=== PATIENT | female | born 1955 | race Caucasian/White ===

== ENCOUNTER 2025-04-08 07:36 | Outpatient (OUT) | payer MEDICARE, OTHER, SELFPAY ==
--- OUTSIDE RECORDS SUMMARY | 2020-01-05 05:30 | XMS_ITS | Continuity of Care Document ---
Author Organization [facility] Address [address] [place] [address] Phone Care Team Providers Care Product Marketer Name Role Phone TeofiloRobbi Mack Unavailable Unavailable Procedures Procedure Date Covid Testing [facility] Results Test Name Date and Time Measure Units Reference Range Abnormal Flag Status Comments Panel Description: SARS-CoV-2, ELVIS Final SARS-CoV-2, ELVIS 07:53:00 Not Detected Not Detected Final This test was developed and its performance characteristics determinedby [facility]. This test has not been FDA cleared orapproved. This test has been authorized by FDA under an Emergency UseAuthorization (EUA). This test is only authorized for the duration oftime the declaration that circumstances exist justifying theauthorization of the emergency use of in vitro diagnostic tests fordetection of SARS-CoV-2 virus and/or diagnosis of COVID-19 infectionunder section 564(b)(1) of the Act, 21 U.S.C. 360bbb-3(b)(1), unlessthe authorization is terminated or revoked sooner.When diagnostic testing is negative, the possibility of a falsenegative result should be considered in the context of a patient'srecent exposures and the presence of clinical signs and symptomsconsistent with COVID-19. An individual without symptoms of COVID-19and who is not shedding SARS-CoV-2 virus would expect to have anegative (not detected) result in this assay.Performed by:[facility] ([facility]) Panel Description: SARS-CoV-2 Antibody, IgM [facility] SARS-CoV-2 Antibody, IgM 16:10:00 Negative Negative Final This sample do es not contain detectable SARS-CoV-2 IgM antibodies.This negative result does not rule out SARS-CoV-2 infection.Correlatio n with epidemiologic risk factors and other clinical andlaboratory findings is recommended. Serologic results should not beused as the sole basis to diagnose or exclude recent YOOY-XcI-1tayfzpjcc. Performed by:[facility] ([facility]) Panel Description: SARS-CoV-2 Antibody, IgG [facility] al SARS-CoV-2 Antibody, IgG 020 08:27:00 Comment Negative Final See [facility] SARS-CoV-2 Ab, IgGPerformed by:[facility] ([facility]) Panel Description: [facility] SARS-CoV-2 Ab, IgG Final [facility] SARS-CoV-2 Ab, IgG 020 09:32:00 Negative Negative Final This sample do es not contain detectable SARS-CoV-2 IgG antibodies.This negative result does not rule out SARS-CoV-2 infection.Correlatio n with epidemiologic risk factors and other clinical andlaboratory findings is recommended. Serologic results should not beused as the sole basis to diagnose or exclude recent OMPG-UhQ-7dcjbgpauw. This assay was performed using the [facility] Liaison(R)SARS-CoV-2 S1/S2 IgG assay.Performed by:[facility] ([facility]) Advance Directives Directive Yes / No Effective Date File Name No Information Encounters Encounter Description Practice Location Reason(s) For Visit Diagnoses Date Provider Providers Copied on Encounter [facility], [address] [place] [address], [id number], [place] tel:[phone] COVID ECHD Encounter for screening for other viral disease Teofiloi DO Culp. [address] [place], [place], [id number], [place]. tel:[phone] Family History Family Member Type Diagnosis Age At Onset No Information Payers Payer name Insurance type Covered libertarian ID Authormanisha valentin(s) Medicare [facility] [id number] [facility] Individual Claims [id number] Social History Type Description Quantity Date Captured Comments Alcohol Use Details Unknown Caffeine Use Details Unknown Tobacco Use Status No Information Smoking Status No Information Sex Female Sexual Orientation Straight or heterosexual Gender Identity Female Chief Complaint And Reason For Visit No Information Reason For Referral Reason For Referral No Information History Of Present Illness Encounter Date Complaint History Of Prese nt Illness No Information Functional Status Date Functional Assessmen t No Information Instructions Date Instruction Additional Infor mation No Information Assessments Type Assessment Date assessment Encounter for screening for othe r viral disease Patient Care Teams Name Effective Dates (start - stop) Status Members No Information
--- OUTSIDE RECORDS SUMMARY | 2025-04-08 07:45 | XMS_ITS | Clinical Summary ---
Author Organization [facility] Address [address], [address] [place] [address] Care Team Providers Care Canceling And Cutting Control Clerk Name Role Phone No, Pcp Primary Care Provider Unavailabl e Encounters DateTypeDepartmentCare MzpcIojuhhaynsh09/07/2025 1:30 PM EDTProcedure visit [facility] [address] [place] [address] Erika Braswell AuD Sensorineural hearing loss, bilateral (Primary Dx)03/02/2025 10:00 AM EDT Procedure visit [facility] [address] [place] [id number] Erika Braswell AuD Sensorineural hearing loss, bilateral (Primary Dx)from Last 3 Months Social History Tobacco UseTypesPacks/DayYears UsedDateSmoking Tobacco: Never Assessed CommentsUnknownSex and Gender InformationValueDate RecordedSex Assigned at Yoppus4803/09/2025 8:44 AM EDTLegal NopHkukuc96/10/2013 6:56 PM ESTGender Identity Sqzkut1403/09/2025 8:44 AM EDTSexual OrientationNot on file Plan of Treatment Health MaintenanceDue DateLast DoneCommentsDepression Rophon1406/20/1966Hepatitis C fcgqef8506/20/1972Breast cancer pnbybt7006/20/19944632Tohexi63/18/1995Colonoscopy 1999Colorectal Cancer Ygveqf2706/20/1999FIT/FOBT: Average risk1999 Fecal-DNA (Cologuard): Average risk1999Sigmoidoscopy/CT colonography 1999DEXA (modify frequency per FRAX score)2009Pneumococcal 50+ years Vaccine (2 of 2 - PCV), 04/06/2020Flu vaccine (#1)01/01/2025 COVID-19 Vaccine (1 - 2023- season)2025nnual Wellness Visit (Medicare) 03/09/2025Respiratory Syncytial Virus (RSV) or age 60 yrs+ (1 - 1-dose 75+ series)2029DTaP/Tdap/Td vaccine (2 - Td or Tdap) Shingles ktbrxafPeskuwybb62/21/2021, 04/06/2020Hepatitis A vaccineAged OutNo longer eligible based on patient's age to complete this topicHepatitis B vaccine Aged OutNo longer eligible based on patient's age to complete this topicHib vaccineAged OutNo longer eligible based on patient's age to complete this topic Meningococcal (ACWY) vaccineAged OutNo longer eligible based on patient's age to complete this topicMeningococcal B vaccineAged OutNo longer eligible based on patient's age to complete this topicPolio vaccineAged OutNo longer eligible based on patient's age to complete this topic Insurance Care Teams Team MemberRelationshipSpecialtyStart DateEnd Date No, Pcp PCP - General03/02/25
--- OUTSIDE RECORDS SUMMARY | 2025-04-08 07:45 | XMS_ITS | Patient Health Record ---
Author Organization [facility] Address [address] [place] [address] [place] [address] Care Team Providers Care Legal Executive Name Role Phone Teo Odom DO Primary Care Provider Unavail able AlanCasa Unavailable [phone] Allergies Allergen (clinical drug ingredient) Drug/Non Drug Allergy documented on EMR Reaction Allergy Type Onset Date Status AdhesiveUnknownAllergyActive Reason For Referral No Information Medications Medication SIG (Take, Route, Frequency, Duration) Notes Start Date End Date Status Vitamin D3 75 MCG (3000 UT) as directed Orally ActiveEstradiol 0.1 MG/GMas directed VaginalweeklyActiveVitamin C 1000 MG1 tablet Orally Once a day; Duration: 30 day(s)Activetumeric1 tab qdActiveCurcumin 95 500 MGas directed Orally2 tabsActiveMagnesium 400 MGas directed OrallyActive Calcium Citrate 1040 MGas directed Ewvrpa7042 mgActiveGabapentin 100 MG1 capsule Orally Once a day; Duration: 30 day(s)ActiveSynthroid 125 MCG1 tablet Orally Once a dayNot-TakingMeloxicam 7.5 MG1 tablet Orally Once a day; Duration: 30 day(s)ActiveVitamin C 100 MG1 tablet Orally Once a day; Duration: 30 day(s) Not-TakingPower Step Orthoticsas kcqroccq21/10/2014ctiveSynthroid 137 MCG1 tablet Orally Once a dayActive Social History Tobacco Use: Social History Observation Description Date Details (start date - stop date) Never Smoker NA - NA tobacco use Question Answer Notes Patient is a: non smoker Problems Problem Type SNOMED Code ICD Code Onset Dates Problem Status W/U Status Risk Notes Problem Pain in right foot (021596810106428) Pain in right foot (M79.671) ActiveconfirmedProblemCallosity (617601274)Corns and callosities (L84)Active confirmedProblemSwelling of first metatarsophalangeal joint of hallux (425896830)Hallux valgus right foot (M21.611)Activeconfirmed Plan Of Treatment Pending Test Test Name Order Date X ray: Foot, left 04/12/2014 X ray: Foot, right 04/12/2014 Insurance Providers Payer Name Payer Address Payer Phone Subscriber Number Group Number Insured Name Patient Relationship to Insured Coverage Start Date Coverage End Date Medicare Part B J-15 Part [employer] Claims [address] [place] [address] [id number], AliceSelf [place] patient [place] [id number], AliceSelf - patient is the insured Medical (General) History Medical History History ICD Code depression hearing problemshypothyroidismskin conditionseye problemsosteoarthritisSurgical History Surgery Date(Month/Year)
--- OUTSIDE RECORDS SUMMARY | 2025-04-08 07:45 | XMS_ITS | Clinical Summary ---
Author Organization [facility] Address [address] [place] [address] Phone Care Team Providers Care Base Cloth Inspector Name Role Phone Unavailable Primary Care Provider Unavailabl e Social History Tobacco UseTypesPacks/DayYears UsedDateSmoking Tobacco: Never Assessed CommentsUnknownSex and Gender InformationValueDate RecordedSex Assigned at Not on fileLegal AahKcrdbe67/25/2022 11:37 AM ESTGender IdentityNot on file Sexual OrientationNot on file Plan of Treatment Not on file
--- OUTSIDE RECORDS SUMMARY | 2025-04-08 07:46 | XMS_ITS | Clinical Summary ---
Author Organization [facility] Address [address] [place], [place] [address] Care Team Providers Care Manager Fraud Name Role Phone Teo Odom DO Primary Care Provider [phone] Allergies Active AllergyReactionsCriticalityNoted DateCommentsAdhesive Tape (Rosins) 10/13/2003 rash Medications MedicationSigDispense QuantityRefillsLast FilledStart DateEnd DateStatus SYNTHROID 100MCG TABLET Take one(1) tablet daily. 90 305Active Additional Information Patient taking differently: 137 mcg ORAL DAILY, Reported on 09/02/2023 MACRODANTIN 50MG CAPSULE TAKES NEEDED 30 Active CALCARB 600 W/VITAMIN D TAB 1200mg taken dryfo125Active INV VITAMIN D3 5000 UNITS CAPSULE (IRB 19-1548) Take 5,000 Units by mouth once daily. For Investigational Drug Use Only. PI: Mey Walton,PhD. Take one capsule by mouth daily for 3 months prior to surgery and 3 months after surgery.Active gabapentin (NEURONTIN) 100 mg capsule Take 100 mg by mouth daily at bedtime. 1-2 tablet dose at bedtimeActive meloxicam (MOBIC) 15 mg tablet Take 15 mg by mouth once daily.07/31/2023ctive triamcinolone acetonide (KENALOG) 0.1 % cream Apply 1 application to affected area once daily.08/06/2023ctive estradiol (ESTRACE) 0.01 % (0.1 mg/gram) vaginal cream Use 1 g vaginally one time a week.Active Active Problems ProblemNoted DateDiagnosed DatePrimary osteoarthritis of left knee01/08/2024 Diffuse cystic wilmpgppku91/12/2004Postsurgical /27/2003Toxic diffuse goiter without mention of thyrotoxic crisis or storm10/27/2002 Family History Medical HistoryRelationCommentsBreast CancerPaternal AuntdeceasedRelationStatus CommentsPaternal Aunt Social History Tobacco UseTypesPacks/DayYears UsedDateSmoking Tobacco: Never AssessedAlcohol UseStandard Drinks/WeekCommentsNot Asked0 (1 standard drink = 0.6 oz pure alcohol)PHQ-2AnswerDate RecordedPHQ-2 jibyr539rea Deprivation Index AnswerDate RecordedNational Score (1-100), lower number is lower risk65 07/05/2023State Score (1-10), lower number is lower wjgk766ata from: https://www.neighborhoodatlas.medicine.[facility]/. Last address used for v[address]wfxydbes[address]07/05/2023CommentsNoSex and Gender InformationValueDate RecordedSex Assigned at BirthNot on fileLegal SexFemale 05/04/2012 9:16 AM ESTGender IdentityNot on fileSexual OrientationNot on file Last Filed Vital Signs Vital SignReadingTime TakenCommentsBlood Ckclbdte648/71009/10/2023 8:15 AM EDT Cverq874009/10/2023 8:03 AM QBFUdwnjrjufdc28.8 ??C (98.2 ??F)09/10/2023 8:03 AM EDTRespiratory Bokc977509/10/2023 8:15 AM EDTOxygen Ptlyuuvtig47%09/10/2023 8:15 AM EDTInhaled Oxygen Concentration--Ulpvkj89.7 kg (178 lb)09/05/2023 10:07 AM SEXYztkun793.2 cm (5' 7 )09/05/2023 10:07 AM EDTBody Mass Index27.8804 10:07 AM EDT Plan of Treatment Health MaintenanceDue DateLast DoneCommentsAnnual PCP Team Chronic Disease Visit 1972Anxiety Pxmtdlshk50/18/1973Depression Yguxwlpni90/18/1973Hepatitis C Wdifyskbr79/18/1973CT Soatpynrmlnc65/18/2000Cologuard (FIT-DNA)1999Fecal Occult Blood1999Lipid Xdpeuclts60/18/7400Lhjbxuhznifiq80/18/2000Diabetes Kgkjpmuwd74Mammogram Mxgmxljjt82Medicare Annual Wellness Visit06/03/2019Bone Density Vfrxeuofg50/18/2020Pneumococcal Vaccine: 50+ (2 of 2 - PCV)2106/06/2020, 04/06/2020Advance Directive Weolkrblat19/01/2025Covid-19 Vaccine ( - season)5106/20/2020, 09/03/2020, 08/07/2020Influenza Vaccine (#1)02/01/20254077Arlxrmyviza02/09/2029 09/10/2023, 08/30/2003Colorectal Cancer Ugqvdwdou93/09/2029RSV Vaccine (1 - 1- dose 75+ series)2029DTaP,Tdap,Td Vaccine (2 - Td or Tdap)03/27/2032 03/27/2022hingrix NquqtjrWydmqowkt58/21/2021, 04/06/2020 Procedures Procedure NamePriorityDate/TimeAssociated DiagnosisCommentsCOLONOSCOPY SCREENING Pzzuosh3209/10/2023 8:02 AM EDT Personal history of colonic polyps MAMMOGRAM SCREENING BIL07/11/2006 11:55 AM EST COMPREHENSIVE METABOLIC IFVMHOryzwla20/27/2003 4:09 PM EDT Postsurgical Hypothyroid Tox Dif Goiter No Crisis from Last 3 Months or Most Recently Relevant to Health Maintenance Results * COLONOSCOPY SCREENING (09/10/2023 8:02 AM EDT)Anatomical RegionLaterality ModalityOtherSpecimen (Source)Anatomical Location / LateralityCollection Method / VolumeCollection TimeReceived Time09/10/2023 7:20 AM EDT Narrative 09/10/2023 8:18 AM EDT [facility] Gastrointestinal Endoscopy Patient Name: Jolynn Hoffmann Procedure Date: 09/10/2023 7:20 AM Date of : 1955 Admit Type: Outpatient Age: 68 Gender: Female Note Status: Finalized Procedure: ? Colonoscopy Indications: ? High risk colon cancer surveillance: Personal ? history of colonic polyps Providers: ? Dudley Baker Jr, DO Patient Profile: ? This is a 68 year old female. Refer to note in ? patient chart for documentation of history and ? physical. Last Colonoscopy: 5 years ago. History of ? chronic constipation. Referring Physician: ?? Dudley Baker Jr, DO (Referring MD) Medicines: ? Propofol per Anesthesia, Monitored Anesthesia Care Complications: ? No immediate complications. Requesting Provider: ?? Procedure: ? Pre-Anesthesia Assessment: ? - Prior to the procedure, a History and Physical ? was performed, and patient medications and ? allergies were reviewed. The patient's tolerance of ? previous anesthesia was also reviewed. The risks ? and benefits of the procedure and the sedation ? options and risks were discussed with the patient. ? All questions were answered, and informed consent ? was obtained. Prior Anticoagulants: The patient has ? taken no anticoagulant or antiplatelet agents. ASA ? Grade Assessment: III - A patient with severe ? systemic disease. After reviewing the risks and ? benefits, the patient was deemed in satisfactory ? condition to undergo the procedure. ? After I obtained informed consent, the scope was ? passed under direct vision. Throughout the ? procedure, the patient's blood pressure, pulse, and ? oxygen saturations were monitored continuously. The ? Colonoscope was introduced through the anus and ? advanced to the terminal ileum, with identification ? of the appendiceal orifice and IC valve. The ? colonoscopy was performed without difficulty. The ? patient tolerated the procedure well. The quality ? of the bowel preparation was adequate. The entire ? colon was examined. The terminal ileum, ileocecal ? valve, appendiceal orifice, and rectum were ? photographed. Moderate Sedation: ? MAC anesthesia was administered by the anesthesia team. Findings: ? The digital rectal exam was normal. ? The terminal ileum appeared normal. ? Two sessile polyps were found in the distal sigmoid colon. The polyps ? were small in size. These polyps were removed with a cold snare. ? Resection and retrieval were complete. ? No additional abnormalities were found on retroflexion. Impression: ?- The examined portion of the ileum was normal. ? - Two small polyps in the distal sigmoid colon, ? removed with a cold snare. Resected and retrieved. Recommendation: ?- Discharge patient to home. ? - Resume regular diet. ? - Continue present medications. ? - Await pathology results. ? - Repeat colonoscopy in 5 years for surveillance. ? - Patient has a contact number available for ? emergencies. The signs and symptoms of potential ? delayed complications were discussed with the ? patient. Return to normal activities tomorrow. ? Written discharge instructions were provided to the ? patient. ? - Consider Augie S two tabs at bedtime for ? chronic constipation. Procedure Code(s): ? --- Professional --- ? 75973, Colonoscopy, flexible; with removal of ? tumor(s), polyp(s), or other lesion(s) by snare ? technique Diagnosis Code(s): ? --- Professional --- ? Z12.11, Encounter for screening for malignant ? neoplasm of colon ? Z86.010, Personal history of colonic polyps ? D12.5, Benign neoplasm of sigmoid colon CPT copyright 2020 [employer]. All rights reserved. The codes documented in this report are preliminary and upon sales route driver helper review may be revised to meet current compliance requirements. Attending Participation: ? I personally performed the entire procedure. Scope In: 7:37:09 AM Scope Out: 7:57:31 AM MD Dudley Wilder Jr, DO 09/10/2023 8:03:21 AM This report has been signed electronically by Dudley Baker Jr , DO Number of Addenda: 0 Note Initiated On: 09/10/2023 7:20 AM Estimated Blood Loss: ? Estimated blood loss: none. Authorizing ProviderResult TypeResult StatusDavid Wayne Baker Jr., DODIGESTIVE DISEASEFinal Result * MAMMOGRAM SCREENING RUDY (07/11/2006 11:55 AM EST)ComponentValueRef RangeTest MethodAnalysis TimePerformed AtPathologist SignatureTranscriptionReport Text Exam Performed: SCREEN BRYAN CADB IMPRESSION: BILATERAL BREASTS - CATEGORY 0 Multiple focal asymmetric densities. Spot compression is recommended at this time. OVERALL ASSESSMENT - INCOMPLETE: NEED ADDITIONAL IMAGING EVALUATION END OF IMPRESSION Comparison is made to films from 13-Oct-2003. The mammography films were scanned using Computer Aided Detection and the results were reviewed by the radiologist at the time of image intrepretation. Bilateral Breast Findings: The breasts are heterogeneously dense. This may lower the sensitivity of mammography. Multiple focal asymmetric densities are present. Principal Financial Center Manager: BRIAN MARREROAnatomical RegionLateralityModality OtherSpecimen (Source)Anatomical Location / LateralityCollection Method / Volume Collection TimeReceived Time07/11/2006 11:55 AM EST Narrative 07/12/2006 8:49 AM EST Ordered by an unspecified provider. Authorizing ProviderResult TypeResult StatusCcf ProviderMAMMOGRAPHYFinal Result * COMP METABOLIC PANEL (10/27/2002 4:09 PM EDT)ComponentValueRef RangeTest MethodAnalysis TimePerformed AtPathologist SignatureProtein, Total7.76.0 - 8.4 g/dLCLEKEENAN PRIVATE HOSPITAL LABAlbumin4.53.5 - 5.0 g/dLUNIVERSITY H[facility]PITALS SAMAR[facility] LABCalcium9.7 8.5 - 10.5 mg/dLUNIVERSITY HOSPITALS [facility]AR[facility] LABBilirubin, Total0.50.0 - 1.5 mg/dL [facility] LABAlkaline Xusxtquvsus1320 - 150 U/[facility] LABAST 217 - 40 U/LCGALION HOSPITAL HSLFahewan27343 - 110 mg/dLUNIVERSITY HOSPITALS SAMAR[facility] LAB LVP101 - 25 mg/dLUNIVERSITY HOSPITALS [facility] LABCreatinine0.70.7 - 1.4 mg/dLUNIVERSITY HOS[facility]ITALS [facility] CEJBuphxz482077 - 148 mmol/LCGALION HOSPITAL LABPotassium4.13.5 - 5.0 mmol/[facility] CPSGaxgoplm15434 - 110 mmol/[facility] QJEXM583 24 - 32 mmol/[facility] LABAnion Lwd503 - 15 mmol/[facility] LAB MHB367 - 45 U/[facility] LABSpecimen (Source)Anatomical Location / LateralityCollection Method / VolumeCollection TimeReceived TimeBlood specimen (specimen)BLOOD SPECIMEN / Ykfqjfw0210/27/2002 4:09 PM EDT Narrative Authorizing ProviderResult TypeResult StatusSethu Angel HORNELABORATORYFinal Result Performing OrganizationAddressCity/State/ZIP CodePhone Number [facility] [address] [place] [address] from Last 3 Months or Most Recently Relevant to Health Maintenance Insurance [place] [id number] Care Teams Team MemberRelationshipSpecialtyStart DateEnd Teo Song DO [address] [address] PCP - General10/23/02
--- OUTSIDE RECORDS SUMMARY | 2025-04-08 07:46 | XMS_ITS | Clinical Summary ---
Author Organization [facility] Healthcare Address [address] [place] [address] Care Team Providers Care Skin Fitter Name Role Phone Teo Odom Primary Care Provider [phone] Allergies No known active allergies Medications MedicationSigDispense QuantityRefillsLast FilledStart DateEnd DateStatus levothyroxine (Synthroid, Levoxyl) 112 MCG tablet Take 112 mcg by mouth in the morning.01/06/2023ctive estradiol (Estrace) 0.1 MG/GM vaginal cream INSERT 1 GRAM VAGINALLY ONCE WEEKLYActive rOPINIRole (Requip) 0.25 MG tablet 03/10/2025tive gabapentin (Neurontin) 100 MG capsule Take 1 capsule by mouth in the morning and 2 capsules at bedtime as needed for restless legsDiscontinued meloxicam (Mobic) 15 MG tablet TAKE 1/2 TO 1 TABLET BY MOUTH EVERY DAY NEEDED FOR PAIN Discontinued ipratropium (Atrovent) 0.06 % nasal spray Indications:Chronic rhinitisAdminister 2 sprays into each nostril in the morning and 2 sprays in the evening and 2 sprays before bedtime. 15 mL 110Discontinued ibandronate (Boniva) 150 MG tablet TAKE 1 TABLET BY MOUTH MONTHLY FOR BONE PIPGPAH52Discontinued Active Problems No known active problems Encounters DateTypeDepartmentCare QjhwNnofjammnai19/09/2025 10:15 AM EDTOffice Visit NICHOLE PETERSON [address] [facility] [address] [place] [phone] Carmen Tan, Cystocele, midline (Primary Dx); Vaginal dryness, menopausal; Post-menopause; Hx of hysterectomy for benign disease; Hx of BSO (bilateral salpingo-oophorectomy); Screening breast bqfbfpswbuw12/09/2025Travelfrom Last 3 Months Family History Medical HistoryRelationNameCommentsDiabetesFatherNo Known ProblemsMaternal GrandfatherNo Known ProblemsMaternal GrandmotherHeart diseaseMotherNo Known ProblemsPaternal GrandfatherDiabetesPaternal GrandmotherHypertensionSibling Breast cancerNeg HxColon cancerNeg HxMelanomaNeg HxOvarian cancerNeg HxRelation GxiaClpcftUwastbvdYokiltc0HqvgdyUhraggcuGrumbcuz GrandfatherDeceasedMaternal GrandmotherDeceasedMotherDeceasedPaternal GrandfatherDeceasedPaternal GrandmotherDeceasedSiblingAliveSister1 Social History Tobacco UseTypesPacks/DayYears UsedDateSmoking Tobacco: FormerCigarettes Smokeless Tobacco: Never Tobacco Cessation:Counseling Given: Not Answered Alcohol UseStandard Drinks/WeekCommentsNever0 (1 standard drink = 0.6 oz pure alcohol)Caffeine intake: 2-3 cups per day pop, coffeeCommentsNoSex and Gender InformationValueDate RecordedSex Assigned at BirthNot on fileLegal Sex Emzkzi3208/15/2022 6:50 PM EDTGender IdentityNot on fileSexual OrientationNot on file Last Filed Vital Signs Vital SignReadingTime TakenCommentsBlood Hvsnurvw966/801 10:18 AM EDT Pulse--Temperature--Respiratory Rate--Oxygen Saturation--Inhaled Oxygen Concentration--Oyuayy23.4 kg (186 lb)03/11/2025 10:18 AM LISRorvyn620.6 cm (5' 6 )01/23/2023 10:48 AM EDTBody Mass Index30.02001/23/2023 10:48 AM EDT Plan of Treatment DateTypeDepartmentCare Team (Latest Contact Info)Nunpoyhihfl93/13/2026 9:15 AM EDTOffice Visit [facility] Aleyda Zepeda GILBERTO D [address] [phone] Carmen Tan DO [address] [phone] [place] [address] Care Teams Team MemberRelationshipSpecialtyStart DateEnd Date Teo Odom [address] [place] [address] PCP - GeneralFamily Medicine03/02/24
--- NOTE | 2025-04-08 08:01 | ECG_ITS ---
[facility] Test Date: 2025-04-08 Pat Name: HOA GHOTRA Department: Room: - Gender: Female Basket Mender: : 1955 Requested By: ALEXYS JUNG Order Number: [id number] Reading MD: DOROTHY CRUZ Measurements Intervals [place] Rate: 53 P: 25 DE: 170 QRS: 61 QRSD: 93 T: 56 QT: 433 QTc: 408 Interpretive Statements SINUS BRADYCARDIA No previous ECG available for comparison Electronically Signed On 04-08-2025 17:00:20 EST by DOROTHY CRUZ
--- NOTE | 2025-04-08 08:55 | PM.PRESUREVA ---
History of Present Illness History of Present Illness Chief complaint: right upj obstruction Narrative: Patient presents for presurgical testing. Please see HPI from Dr. Dewey dated April 05, 2025. Review of Systems ROS Narrative Please see ROS from Dr. Dewey dated April 05, 2025. PFSH PFS Medical History (Updated 04/08/25 @ 08:41 by Sachi Bustos NP) Osteoarthritis ?M19.90 - Unspecified osteoarthritis, unspecified site (ICD-10) Headache ?R51.9 - Headache, unspecified (ICD-10) Restless leg ?G25.81 - Restless legs syndrome (ICD-10) Constipation ?K59.00 - Constipation, unspecified (ICD-10) Goiter ?E04.9 - Nontoxic goiter, unspecified (ICD-10) Rectocele ?N81.6 - Rectocele (ICD-10) Cystocele UTI (urinary tract infection) ?N39.0 - Urinary tract infection, site not specified (ICD-10) Renal cyst ?N28.1 - Cyst of kidney, acquired (ICD-10) Hypothyroid ?E03.9 - Hypothyroidism, unspecified (ICD-10) Back pain ?M54.9 - Dorsalgia, unspecified (ICD-10) Kidney stones ?N20.0 - Calculus of kidney (ICD-10) Right lower quadrant pain ?R10.31 - Right lower quadrant pain (ICD-10) UPJ (ureteropelvic junction) obstruction ?N13.5 - Crossing vessel and stricture of ureter without hydronephrosis (ICD-10) Surgical History (Updated 04/08/25 @ 08:19 by Sachi Bustos NP) H/O thyroidectomy ?Z98.890 - Other specified postprocedural states (ICD-10) ?Z90.89 - Acquired absence of other organs (ICD-10) History of repair of rectocele ?Z98.890 - Other specified postprocedural states (ICD-10) H/O cystocele repair ?Z98.890 - Other specified postprocedural states (ICD-10) History of hysterectomy ?Z90.710 - Acquired absence of both cervix and uterus (ICD-10) H/O colonoscopy ?Z98.890 - Other specified postprocedural states (ICD-10) Family History (Updated 04/08/25 @ 08:41 by Sachi Bustos NP) Other Family history of diabetes mellitus Family history of heart disease Family history of hypertension Family history of prostate cancer Pacemaker Social History (Updated 04/08/25 @ 08:32 by Sachi Bustos NP) Within the past year, how often did you have a drink containing alcohol: never Score interpretation: A score less than 3 is consistent with normal alcohol consumption. Smoking status: Never smoker Non-prescribed substance use: denies use Highest level of school completed/degree received: Associate degree: academic program Meds Home Medications and Allergies Home Medications ?Medication ?Instructions ?Recorded ?Confirmed ?Type Compounded oral progesterone 04/08/25 History Compounded topical cream 04/08/25 History estriol/estrdiol/progesterone Trace mineral supplement 04/08/25 History ascorbic acid (vitamin C) 1,000 mg 1 g PO DAILY 04/08/25 04/08/25 History capsule calcium 600 mg (as 1 cap PO DAILY 04/08/25 04/08/25 History carbonate)-vitamin D3 10 mcg (400 unit) capsule cholecalciferol (vitamin D3) 50 2,000 unit PO DAILY 04/08/25 04/08/25 History mcg (2,000 unit) capsule compounded Gtueshg-D-Vhgpgiipu 04/08/25 History docusate sodium 100 mg capsule 100 mg PO DAILY PRN constipation 04/08/25 04/08/25 History (Colace) estradiol 0.01% (0.1 mg/gram) 1 appful vaginal QWEEK 04/08/25 04/08/25 History vaginal cream gabapentin 100 mg capsule 100 mg PO QPM PRN Restless legs 04/08/25 04/08/25 History levothyroxine 100 mcg tablet 100 mcg PO DAILY 04/08/25 04/08/25 History magnesium glycinate 120 mg (as 120 mg PO DAILY PRN Supplementation 04/08/25 04/08/25 History glycinate) capsule meloxicam 15 mg tablet 15 mg PO DAILY PRN Osteoarthritis 04/08/25 04/08/25 History prasterone (DHEA) 25 mg tablet 25 mg PO DAILY 04/08/25 04/08/25 History (DHEA) ropinirole 0.25 mg tablet 0.25 mg PO QPM PRN Restless legs 04/08/25 04/08/25 History Allergies Allergy/AdvReac Type Severity Reaction Status Date / Time No Known Drug Allergies Allergy Verified 04/08/25 08:30 Exam Narrative Exam Narrative: Constitutional: Awake, alert, comfortable, well-appearing, appears younger than stated age, nontoxic, interactive, vital signs as charted Head: Normocephalic, atraumatic Neck: Supple, normal appearance, normal range of motion, no meningeal signs, no lymphadenopathy Respiratory: No respiratory distress, breath sounds clear Cardiovascular: Regular rate and rhythm, strong and regular heart tones Abdomen: Nontender, normal bowel sounds, soft, no CVA tenderness Musculoskeletal: Normal gait, no swelling or edema Skin: No rashes or induration, no lesions, only visible skin inspected Neuro: No neurological deficits, normal sensation Psychiatric: Oriented ?3, normal affect Assessment and Plan Assessment and Plan (1) UPJ (ureteropelvic junction) obstruction: (2) Right lower quadrant pain: (3) Kidney stones: Plan Cystoscopy, right retrograde, right ureteroscopy, possible right stent placement scheduled with Dr. Dewey April 15, 2025.
[2025-04-08 09:02] LABS: Hematocrit 35.3 % (36.0-48.0); Hemoglobin 11.3 g/dL (12.0-16.0); Immature Granulocytes Abs Auto 0.00 10^3/uL (0.00-0.03); Immature Granulocytes Pct Auto 0.0 % (0.0-0.5); Lymphocytes Absolute Auto 1.2 10^3/uL (1.2-3.8); Mean Corpuscular HGB Conc 32.0 g/dL (29.9-35.2); Mean Corpuscular Hemoglobin 26.5 pg (26.7-34.0); Mean Corpuscular Volume 82.9 fL (81.0-99.0); Platelet Count 321 10^3/uL (150-450); Red Blood Count 4.26 10^6/uL (4.20-5.40); White Blood Count 5.2 10^3/uL (4.0-11.0)
[2025-04-08 10:29] LABS: Anion Gap 13.6; Blood Urea Nitrogen 14.0 mg/dL (7.0-18.0); Calcium 9.2 mg/dL (8.5-10.1); Carbon Dioxide 27.5 mmol/L (21.0-32.0); Chloride 102 mmol/L (98-107); Estimated GFR (African America >60 (>=60 mL/min/1.73m^2); Estimated GFR (Non-African Ame 56 (>=60 mL/min/1.73m^2); Glucose 96 mg/dL (74-106); Potassium 4.1 mmol/L (3.5-5.1); Sodium 139 mmol/L (136-145)
== END 2025-04-08 07:37 | disposition home or self-care (01) ==
LOC: PST 07:42
PROVIDERS: PCP Family Medicine; Visit Provider Urology
DX: Z01.810 Encounter for preprocedural cardiovascular examination (principal); Z01.812 Encounter for preprocedural laboratory examination; Z01.818 Encounter for other preprocedural examination; N20.1 Calculus of ureter; E78.5 Hyperlipidemia, unspecified
CPT/HCPCS: 80048; 85025; 93005; G0463

== ENCOUNTER 2025-04-15 08:15 | Day surgery (SDC) | payer MEDICARE, OTHER, SELFPAY ==
[2025-04-08 08:49] VITALS: BP 157/77; PULSE 58; TEMP 36.3; O2SAT 97; BMI 28.6
--- OUTSIDE RECORDS SUMMARY | 2025-04-13 09:25 | XMS_ITS | Encounter Summary ---
Author Organization [facility] Address [address] [place] [address] Care Team Providers Care Team Leader/Research Psychologist Name Role Phone Teo Odom DO Primary Care Provider [phone] Source Comments In the event this information is protected by the Federal Confidentiality of Alcohol and Drug AbusePatient Records regulations: The Federal rules restrict any use of the information to criminally investigate or prosecute any alcohol or drug abuse patient.[facility] Reason for Referral * Diagnostic Procedure Only (Routine) - ClosedSpecialtyDiagnoses / Procedures Referred By ContactReferred To ContactXR IMAGING Diagnoses Primary osteoarthritis of both knees Procedures XR KNEE GENERAL 4V AP BOTH/PA BOTH/LAT/MERC BILATERAL RADIOLOGIC EXAM KNEE COMPLETE 4/MORE VIEWS Casper Martinez MD [address] [place] [address] Phone: tel: fax: [place] [address] Referral IDStatusReasonStart DateExpiration DateVisits RequestedVisits [id number] Auto-Generated Referral Reason for Visit * Diagnostic Procedure Only (Routine) - ClosedSpecialtyDiagnoses / Procedures Referred By ContactReferred To ContactXR IMAGING Diagnoses Primary osteoarthritis of both knees Procedures XR KNEE GENERAL 4V AP BOTH/PA BOTH/LAT/MERC BILATERAL RADIOLOGIC EXAM KNEE COMPLETE 4/MORE VIEWS Casper Martinez MD [address] [place] [address] Phone: tel: fax: [place] [address] Referral IDStatusReasonStart DateExpiration DateVisits RequestedVisits [id number] Auto-Generated Referral / Encounter Details DateTypeDepartmentCare Team (Latest Contact Info)Unusinvgigv26/11/2025 9:25 AM EST - 04/13/2025 11:59 PM ESTHospital Encounter Radiology [address] [place] [id number] Primary osteoarthritis of both knees [M17.0] Discharge Disposition: Home Social History Tobacco UseTypesPacks/DayYears UsedDateSmoking Tobacco: Never AssessedAlcohol UseStandard Drinks/WeekCommentsNot Asked0 (1 standard drink = 0.6 oz pure alcohol)PHQ-2AnswerDate RecordedPHQ-2 [id number] Deprivation Index AnswerDate RecordedNational Score (1-100), lower number is lower risk65 07/05/2023State Score (1-10), lower number is lower gvrm911ata from: https://www.neighborhoodatlas.medicine.[facility].edu/. Last address used for t[address]CommentsNoSex and Gender InformationValueDate RecordedSex Assigned at BirthNot on fileLegal SexFemale 05/04/2012 9:16 AM ESTGender IdentityNot on fileSexual OrientationNot on file documented as of this encounter Medications at Time of Discharge MedicationSigDispense QuantityRefillsLast FilledStart DateEnd Date INV VITAMIN D3 5000 UNITS CAPSULE (IRB 19-1548) Take 5,000 Units by mouth once daily. For Investigational Drug Use Only. PI: Mey Walton,PhD. Take one capsule by mouth daily for 3 months prior to surgery and 3 months after surgery. gabapentin (NEURONTIN) 100 mg capsule Take 100 mg by mouth daily at bedtime. 1-2 tablet dose at bedtime meloxicam (MOBIC) 15 mg tablet Take 15 mg by mouth once daily.07/31/2023 triamcinolone acetonide (KENALOG) 0.1 % cream Apply 1 application to affected area once daily.08/06/2023 estradiol (ESTRACE) 0.01 % (0.1 mg/gram) vaginal cream Use 1 g vaginally one time a week. MACRODANTIN 50MG CAPSULE TAKES NEEDED 30 CALCARB 600 W/VITAMIN D TAB 1200mg taken SYNTHROID 100MCG TABLET Take one(1) tablet daily. 90 documented as of this encounter Plan of Treatment DateTypeDepartmentCare Team (Latest Contact Info)Xinginhvfwl40/26/2025 10:30 AM ESTOffice Visit Orthopaedics [address] [place] [address] Roland Parsons, ANGELINA [address] [place] [address] right ankle pain05/18/2025 8:40 AM ESTAppointment Radiology [address] [place] [address] right knee pain05/20/2025 10:15 AM ESTOffice Visit Orthopaedics [address] [place] [address] Casper Martinez MD [address] [place] [address] RIGHT knee pain/ patient would also like left knee looked atdocumented as of this encounter Procedures Procedure NamePriorityDate/TimeAssociated DiagnosisCommentsXR KNEE GENERAL 4V AP BOTH/PA BOTH/LAT/MERC HBQKKZrsnpnz92/11/2025 9:48 AM EST Primary osteoarthritis of both knees documented in this encounter Results * XR KNEE GENERAL 4V AP BOTH/PA BOTH/LAT/MERC BILATERAL (04/13/2025 9:48 AM EST) Anatomical RegionLateralityModalityKneeOtherSpecimen (Source)Anatomical Location / LateralityCollection Method / VolumeCollection TimeReceived Time 04/13/2025 9:48 AM EST Impressions 04/13/2025 10:31 AM EST IMPRESSION: Moderate-severe bilateral medial compartment predominant osteoarthritis, LEFT greater than RIGHT. Retail Property Manager: ABIEL ?? Transcribe Date/Time: Apr 13 2025 ??9:48A Dictated by : MISAEL LOCKE, DO This examination was interpreted and the report reviewed and electronically signed by: JIA GRIGGS, DO on Apr 13 2025 10:29AM ??EST Narrative 04/13/2025 10:31 AM EST * * *Final Report* * * DATE OF EXAM: Apr 13 2025 ??9:48AM ?? LZX ?? [id number] ??- ??XR KNEE 4V AP/PA/LAT/MERCH RUDY ?? / PROCEDURE REASON: Primary osteoarthritis of both knees ? * * * * Physician Interpretation * * * * EXAMINATION: ??XR KNEE 4V AP/PA/LAT/MERCH RUDY CLINICAL HISTORY: ??Primary osteoarthritis of both knees TECHNOLOGIST PROVIDED HISTORY: ??knee pain, no injury, growth on knee TECHNIQUE: ??XR KNEE 4V AP/PA/LAT/MERCH RUDY ?? Laterality: ??BILATERAL ?? Number of different views (projections): ??5 ?? M: ??XB_1 COMPARISON: ??Knee radiograph 08/03/2024. RESULT: No acute fracture or dislocation. ??Severe LEFT medial compartment joint space narrowing with tricompartmental osteophytes. ??Moderate to severe RIGHT medial compartment joint space narrowing. ??No joint effusions. ??No soft tissue swelling Procedure Note Provider, [facility] [place] - 04/13/2025 * * *Final Report* * * DATE OF EXAM: Apr 13 2025 9:48AM LZX 5618 - XR KNEE 4V AP/PA/LAT/MERCH RUDY / PROCEDURE REASON: Primary osteoarthritis of both knees * * * * Physician Interpretation * * * * EXAMINATION: XR KNEE 4V AP/PA/LAT/MERCH RUDY CLINICAL HISTORY: Primary osteoarthritis of both knees TECHNOLOGIST PROVIDED HISTORY: knee pain, no injury, growth on knee TECHNIQUE: XR KNEE 4V AP/PA/LAT/MERCH RUDY Laterality: BILATERAL Number of different views (projections): 5 M: XB_1 COMPARISON: Knee radiograph 08/03/2024. RESULT: No acute fracture or dislocation. Severe LEFT medial compartment joint space narrowing with tricompartmental osteophytes. Moderate to severe RIGHT medial compartment joint space narrowing. No joint effusions. No soft tissue swelling IMPRESSION IMPRESSION: Moderate-severe bilateral medial compartment predominant osteoarthritis, LEFT greater than RIGHT. Retail Property Manager: BRADB Transcribe Date/Time: Apr 13 2025 9:48A Dictated by : MISAEL LOCKE DO This examination was interpreted and the report reviewed and electronically signed by: JIA GRIGGS DO on Apr 13 2025 10:29AM EST Authorizing ProviderResult TypeResult StatusMichaeamanuel Martinez MDRAD-PAMAFinal Result documented in this encounter Visit Diagnoses Diagnosis Primary osteoarthritis of both knees Primary localized osteoarthrosis, lower leg Acute right ankle pain- Primary documented in this encounter Care Teams Team MemberRelationshipSpecialtyStart DateEnd Date Teo Odom DO [address] [place] [address] PCP - General10/23/02documented as of this encounter
--- OUTSIDE RECORDS SUMMARY | 2025-04-13 09:45 | XMS_ITS | Encounter Summary ---
Author Organization [facility] Address [address] [place] [address] Care Team Providers Care Pan Shaker Name Role Phone Teo Odom DO Primary Care Provider [phone] Source Comments In the event this information is protected by the Federal Confidentiality of Alcohol and Drug AbusePatient Records regulations: The Federal rules restrict any use of the information to criminally investigate or prosecute any alcohol or drug abuse patient.[facility] Reason for Referral * MRI/CT (Routine) - AuthorizedSpecialtyDiagnoses / ProceduresReferred By ContactReferred To ContactMR IMAGING Diagnoses Primary osteoarthritis of both knees Mass of soft tissue of knee Procedures MRI KNEE WO IVCON RIGHT MRI ANY JT LOWER EXTREM W/O CONTRAST MATRL Casper Martinez MD [address] [place] [address] Phone: tel: fax: [place] [address] Referral IDStatusReasonStart DateExpiration DateVisits RequestedVisits [id number] Auto-Generated Referral * Diagnostic Procedure Only (Routine) - ClosedSpecialtyDiagnoses / Procedures Referred By ContactReferred To ContactXR IMAGING Diagnoses Primary osteoarthritis of both knees Procedures XR KNEE GENERAL 4V AP BOTH/PA BOTH/LAT/MERC BILATERAL RADIOLOGIC EXAM KNEE COMPLETE 4/MORE VIEWS Casper Martinez MD [address] [place] [address] Phone: tel: fax: [place] [address] Referral IDStatusReasonStart DateExpiration DateVisits RequestedVisits [id number] Auto-Generated Referral Reason for Visit * ReasonCommentsEstablished PatientFollow Up Encounter Details DateTypeDepartmentCare Team (Latest Contact Info)Ubxqfwpcjon23/11/2025 9:45 AM ESTOffice Visit Orthopaedics [address] [place] [address] Casper Martinez MD [address] [place] [address] Primary osteoarthritis of both knees (Primary Dx); Mass of soft tissue of knee Social History Tobacco UseTypesPacks/DayYears UsedDateSmoking Tobacco: Never AssessedAlcohol UseStandard Drinks/WeekCommentsNot Asked0 (1 standard drink = 0.6 oz pure alcohol)PHQ-2AnswerDate RecordedPHQ-2 [id number] Deprivation Index AnswerDate RecordedNational Score (1-100), lower number is lower risk65 07/05/2023State Score (1-10), lower number is lower rwml947ata from: https://www.neighborhoodatlas.medicine.[facility].edu/. Last address used for f[address]4CommentsNoSex and Gender InformationValueDate RecordedSex Assigned at BirthNot on fileLegal SexFemale 05/04/2012 9:16 AM ESTGender IdentityNot on fileSexual OrientationNot on file documented as of this encounter Progress Notes * Casper Martinez MD - 04/13/2025 12:22 PM EST see dictated note Casper Martinez II, MD documented in this encounter Plan of Treatment DateTypeDepartmentCare Team (Latest Contact Info)Fmahbgzjube70/26/2025 10:30 AM ESTOffice Visit Orthopaedics [address] [place] [address] Roland Parsons, DPM [address] [facility] [place] [address] right ankle pain05/18/2025 8:40 AM ESTAppointment Radiology [address] [place] [address] right knee pain05/20/2025 10:15 AM ESTOffice Visit Orthopaedics [address] [place] [address] Casper Martinez MD [address] [place] [address] RIGHT knee pain/ patient would also like left knee looked atNameTypePriority Associated DiagnosesOrder ScheduleMRI KNEE WO IVCON RIGHTRadiologyRoutine Primary osteoarthritis of both knees Mass of soft tissue of knee Expected: 04/20/2025 (Approximate), Expires: 05/13/2026documented as of this encounter Results * XR KNEE GENERAL 4V AP BOTH/PA BOTH/LAT/MERC BILATERAL (04/13/2025 9:48 AM EST) Anatomical RegionLateralityModalityKneeOtherSpecimen (Source)Anatomical Location / LateralityCollection Method / VolumeCollection TimeReceived Time 04/13/2025 9:48 AM EST Impressions 04/13/2025 10:31 AM EST IMPRESSION: Moderate-severe bilateral medial compartment predominant osteoarthritis, LEFT greater than RIGHT. Manager Retail Store: ABIEL ?? Transcribe Date/Time: Apr 13 2025 ??9:48A Dictated by : MISAEL LOCKE DO This examination was interpreted and the report reviewed and electronically signed by: JIA GRIGGS DO on Apr 13 2025 10:29AM ??EST [...] ??No soft tissue swelling Procedure Note Provider, [facility] [place] - 04/13/2025 * * *Final Report* * [...] compartment predominant osteoarthritis, LEFT greater than RIGHT. Manager Retail Store: ABIEL Transcribe Date/Time: Apr 13 2025 9:48A Dictated by : MISAEL LOCKE DO This examination was interpreted and the report reviewed and electronically signed by: JIA GRIGGS DO on Apr 13 2025 10:29AM EST Authorizing ProviderResult TypeResult StatusMichaeamanuel Abimbola Martinez MDRAD-PAMAFinal Result documented in this encounter Visit Diagnoses Diagnosis Primary osteoarthritis of both knees- Primary Primary localized osteoarthrosis, lower leg Mass of soft tissue of knee Primary osteoarthritis of both knees Primary localized osteoarthrosis, lower leg Acute right ankle pain- Primary documented in this encounter Care Teams Team MemberRelationshipSpecialtyStart DateEnd Date Teo Odom DO [address] [place] [address] PCP - General10/23/02documented as of this encounter
--- OUTSIDE RECORDS SUMMARY | 2025-04-13 11:30 | XMS_ITS | Encounter Summary ---
Author Organization [facility] Address [address], [address] [place] [address] Care Team Providers Care Web Production Assistant Name Role Phone No, Pcp Primary Care Provider Unavailabl e Encounter Details DateTypeDepartmentCare Team (Latest Contact Info)Klfyxiwgmni92/11/2025 11:30 AM ESTProcedure visit [facility] Audiology [address] [place] [address] Erika Braswell AuD [address] [place] [address] Sensorineural hearing loss, bilateral (Primary Dx) Social History Tobacco UseTypesPacks/DayYears UsedDateSmoking Tobacco: Never Assessed CommentsUnknownSex and Gender InformationValueDate RecordedSex Assigned at Iivnfd5103/09/2025 8:44 AM EDTLegal OjvTacggl97/10/2013 6:56 PM ESTGender Identity Xezbwg2903/09/2025 8:44 AM EDTSexual OrientationNot on filedocumented as of this encounter Progress Notes * Erika Braswell AuD - 04/13/2025 11:34 AM EST Jolynn Hoffmann 1955.69 y.o. female [id number] Right Ear: Casino Cage Supervisor/Model: Brittney Brendan [address] SN: [id number] Earmold/Tubing/Wire/Dome: #3/50, 8mm Signia tulip dome, rentention wire Left Ear: Casino Cage Supervisor/Model: Brittney Brendan [address] SN: [id number] Earmold/Tubing/Wire/Dome: #2/50, 6mm open dome, retention wire wrapper machine operator SN: [id number] Battery: Rechargeable Warranty End Date: 01/22/2022 Buttons: Programs - short press Power off - long press Programs: #1 Normal Phone Connectivity: iPhone and Bee Shield francesca HEARING AID CHECK Jolynn Hoffmann was seen today, 04/13/2025, for a hearing aid check appointment. She was alone. PROCEDURES: Patient noted hearing aids keep falling out of her ears. She changed the right dome from 5mm occluded dome to a 8mm Signia tulip dome since she was last in. This dome was given to her by her previousaudiologist. Rentetion wires were trimmed down and changed dome on the left hearing aid from 5mm occluded to 6mmopen. She reported good fit. Did not check settings. Gave 2 extra 6mm open domes. PATIENT EDUCATION: - Verbally and visually reviewed importance of consistent use and care and maintenance of devices. Information was verbally shared with patient during appointment. RECOMMENDATIONS: - Continue consistent hearing aid use - Return for hearing aid checks as needed - Retest hearing as medically indicated and/or sooner if a change in hearing is noted. - Contact senior control systems engineer with questions/concerns as needed No charge for today's appointment; Parker Chau, [facility] Audiology [phone] documented in this encounter Plan of Treatment Not on file documented as of this encounter Visit Diagnoses Diagnosis Sensorineural hearing loss, bilateral- Primary documented in this encounter Care Teams Team MemberRelationshipSpecialtyStart DateEnd Date No, Pcp PCP - General03/02/25documented as of this encounter
[2025-04-15] VITALS (11 sets, daily range): BP systolic 129–167; BP diastolic 64–94; PULSE 60–87; TEMP 36.2–36.4; O2SAT 94–100; BMI 28.1
--- OUTSIDE RECORDS SUMMARY | 2025-04-15 08:19 | XMS_ITS | Clinical Summary ---
Author Organization [facility] Address [address] [place] [address] Phone Care Team Providers Care Arboreal Scientist Name Role Phone Unavailable Primary Care Provider Unavailabl e Social History Tobacco UseTypesPacks/DayYears UsedDateSmoking Tobacco: Never Assessed CommentsUnknownSex and Gender InformationValueDate RecordedSex Assigned at Not on fileLegal JzhVxigml24/25/2022 11:37 AM ESTGender IdentityNot on file Sexual OrientationNot on file Plan of Treatment Not on file
--- OUTSIDE RECORDS SUMMARY | 2025-04-15 08:19 | XMS_ITS | Clinical Summary ---
Author Organization [facility] Address [address] [place], [place] [address] Care Team Providers Care Fish Stringer Assembler Name Role Phone Teo Odom DO Primary Care Provider +1- [phone] Allergies Active AllergyReactionsCriticalityNoted DateCommentsAdhesive Tape (Rosins) 10/13/2003 rash Medications MedicationSigDispense QuantityRefillsLast FilledStart DateEnd DateStatus SYNTHROID 100MCG TABLET Take one(1) tablet daily. 90 305Active Additional Information Patient taking differently: 137 mcg ORAL DAILY, Reported on 04/13/2025 MACRODANTIN 50MG CAPSULE TAKES NEEDED 30 Active CALCARB 600 W/VITAMIN D TAB 1200mg taken flnrk033Active INV VITAMIN D3 5000 UNITS CAPSULE (IRB [...] DatePrimary osteoarthritis of left knee01/08/2024 Diffuse cystic vvkanrnvmb76/12/2004Postsurgical /27/2003Toxic diffuse goiter without mention of thyrotoxic crisis or storm10/27/2002 Encounters DateTypeDepartmentCare LqwnXqzbxwqfuwg68/11/2025 9:45 AM ESTOffice Visit Orthopaedics [address] [place] [address] Casper Martinez MD Primary osteoarthritis of both knees (Primary Dx); Mass of soft tissue of knee04/13/2025 9:25 AM EST - 04/13/2025 11:59 PM EST Hospital Encounter Radiology [address] [facility] [place] [address] Primary osteoarthritis of both knees [M17.0] Discharge Disposition: Home04/13/2025Radiology Radiology [address] [place] [address] Danuta Mo, RT(R) Radiology XR04/13/2025Travelfrom Last 3 Months Family History Medical HistoryRelationCommentsBreast CancerPaternal AuntdeceasedRelationStatus CommentsPaternal Aunt Social History Tobacco UseTypesPacks/DayYears UsedDateSmoking Tobacco: Never AssessedAlcohol UseStandard Drinks/WeekCommentsNot Asked0 (1 standard drink = 0.6 oz pure alcohol)PHQ-2AnswerDate RecordedPHQ-2 fjwqp349rea Deprivation Index AnswerDate RecordedNational Score (1-100), lower number is lower risk65 07/05/2023State Score (1-10), lower number is lower sgyq728ata from: https://www.neighborhoodatlas.medicine.[facility].edu/. Last address used for ilyj[address]4CommentsNoSex and Gender InformationValueDate RecordedSex Assigned at BirthNot on fileLegal SexFemale 05/04/2012 9:16 AM ESTGender IdentityNot on fileSexual OrientationNot on file Last Filed Vital Signs Vital SignReadingTime TakenCommentsBlood Ajdmtcox444/7104 8:15 AM EDT Rkopr6500 8:03 AM QJXNriccuhltef40.8 ??C (98.2 ??F)09/10/2023 8:03 AM EDTRespiratory Ibvd249309/10/2023 8:15 AM EDTOxygen Vkiqmeasdu94%09/10/2023 8:15 AM EDTInhaled Oxygen Concentration--Exepej96.7 kg (178 lb)09/05/2023 10:07 AM VVKTvmasg271.2 cm (5' 7 )09/05/2023 10:07 AM EDTBody Mass Index27.8809/05/2023 10:07 AM EDT Plan of Treatment DateTypeDepartmentCare Team (Latest Contact Info)Fnjaknkjmbc92/26/2025 10:30 AM ESTOffice Visit Orthopaedics [address] [place] [address] Roland Parsons, DPM [address] [place] [address] right ankle pain05/18/2025 8:40 AM ESTAppointment Radiology [address] [place] [address] right knee pain05/20/2025 10:15 AM ESTOffice Visit Orthopaedics [address] [place] [address] Casper Martinze MD [address] [place] [address] RIGHT knee pain/ patient would also like left knee looked atHealth Maintenance Due DateLast DoneCommentsAnnual PCP Team Chronic Disease Visit1972Anxiety Meorqhcuz11/18/1973Depression Pypcwmryy10/18/1973Hepatitis C Rnjqyttya93/18/1973 CT Njekolxrvsbo57/18/2000Cologuard (FIT-DNA)1999Fecal Occult Blood 1999Lipid Gnofdnusy21/18/3983Ucpnatbvlobpf31/18/2000Diabetes Screening Mammogram Tnjpwptdg45Medicare Annual Wellness Visit06/03/2019Bone Density Fnvxlfmem87/18/2020Pneumococcal Vaccine: 50+ (2 of 2 - PCV)2106/06/2020, 04/06/2020Advance Directive Discussion 5Covid-19 Vaccine ( season), 09/03/2020, 08/07/2020Influenza Vaccine (#1)7604Jeaushtvzhv77/09/202904/02/2024, 08/30/2003Colorectal Cancer Cwjzocexl78/09/2029RSV Vaccine (1 - 1-dose 75+ series)2029DTaP,Tdap,Td Vaccine (2 - Td or Tdap) Shingrix VhwxrroDbftcqcgu66/21/2021, 04/06/2020 Procedures Procedure NamePriorityDate/TimeAssociated DiagnosisCommentsXR KNEE GENERAL 4V AP BOTH/PA BOTH/LAT/MERC RTAAPNbgxlve28/11/2025 9:48 AM EST Primary osteoarthritis of both knees COLONOSCOPY NTZBMNQAGQgxjfhs68/09/2024 8:02 AM EDT Personal history of colonic polyps MAMMOGRAM SCREENING BIL07/11/2006 11:55 AM EST COMPREHENSIVE METABOLIC JAGXTFsxlewq26/27/2003 4:09 PM EDT Postsurgical Hypothyroid Tox Dif Goiter No Crisis from Last 3 Months or Most Recently Relevant to Health Maintenance Results * XR KNEE GENERAL 4V AP BOTH/PA BOTH/LAT/MERC BILATERAL (04/13/2025 9:48 AM EST) Anatomical RegionLateralityModalityKneeOtherSpecimen (Source)Anatomical Location / LateralityCollection Method / VolumeCollection TimeReceived Time 04/13/2025 9:48 AM EST Impressions 04/13/2025 10:31 AM EST IMPRESSION: Moderate-severe bilateral medial compartment predominant osteoarthritis, LEFT greater than RIGHT. Content Curator: ABIEL ?? Transcribe Date/Time: Apr 13 2025 [...] ??No soft tissue swelling Procedure Note Provider, [facility] [place] - 04/13/2025 * * *Final Report* * [...] compartment predominant osteoarthritis, LEFT greater than RIGHT. Content Curator: PSCB Transcribe Date/Time: Apr 13 2025 9:48A Dictated by : MISAEL LOCKE DO This examination was interpreted and the report reviewed and electronically signed by: JIA GRIGGS DO on Apr 13 2025 10:29AM EST Authorizing ProviderResult TypeResult StatusMicbillie Martinez MDRAD-PAMAFinal Result * COLONOSCOPY SCREENING (09/10/2023 8:02 AM EDT)Anatomical RegionLaterality ModalityOtherSpecimen (Source)Anatomical Location / LateralityCollection Method / VolumeCollection TimeReceived Time09/10/2023 7:20 AM EDT Narrative 09/10/2023 8:18 AM EDT [facility] Gastrointestinal Endoscopy Patient Name: Jolynn Hoffmann Procedure Date: 09/10/2023 7:20 AM Date of : 1955 Admit Type: Outpatient Age: 68 Gender: Female Note Status: Finalized Procedure: ? Colonoscopy Indications: ? High risk colon cancer surveillance: Personal ? history of colonic polyps Providers: ? Dudley aBker Jr, DO Patient Profile: ? This is [...] to the ? patient. ? - Consider Senkirillot S two tabs at bedtime for ? chronic constipation. Procedure Code(s): ? --- Professional --- ? 86569, Colonoscopy, flexible; with removal of ? tumor(s), polyp(s), or other lesion(s) by snare ? technique Diagnosis Code(s): ? --- Professional --- ? Z12.11, Encounter for screening for malignant ? neoplasm of colon ? Z86.010, Personal history of colonic polyps ? D12.5, Benign neoplasm of sigmoid colon CPT copyright 2020 [employer]. All rights reserved. The codes documented in this report are preliminary and upon drapery counselor review may be revised to meet current compliance requirements. Attending Participation: ? I personally performed the entire procedure. Scope In: 7:37:09 AM Scope Out: 7:57:31 AM MD Dudley Wilder Jr, DO 09/10/2023 8:03:21 AM This report has been signed electronically by Dudley Baker Jr, DO Number of Addenda: 0 Note Initiated [...] Multiple focal asymmetric densities are present. Principal Project Assistant: BRIAN TANGRADIOLOGYAnatomical RegionLateralityModality OtherSpecimen (Source)Anatomical Location / LateralityCollection Method / Volume Collection TimeReceived Time07/11/2006 11:55 AM EST Narrative 07/12/2006 8:49 AM EST Ordered by an unspecified provider. Authorizing ProviderResult TypeResult StatusCcf ProviderMAMMOGRAPHYFinal Result * COMP METABOLIC PANEL (10/27/2002 4:09 PM EDT)ComponentValueRef RangeTest MethodAnalysis TimePerformed AtPathologist SignatureProtein, Total7.76.0 - 8.4 g/dLADENA PIKE [facility] LABAlbumin4.53.5 - 5.0 g/dLADENA PIKE [facility] LABCalcium 9.78.5 - 10.5 mg/dLADENA PIKE [facility] LABBilirubin, Total0.50.0 - 1.5 mg/dL [facility] LABAlkaline Nnedcfiaoif8239 - 150 U/LCJO[facility] LABAST 217 - 40 U/LCJOINT [facility]OWNSH[facility] JBVRcnnvey74540 - 110 mg/dLADENA PIKE [facility] LAB WML622 - 25 mg/dLADENA PIKE [facility] LABCreatinine0.70.7 - 1.4 mg/dLADENA PIKE [facility] WBRHppzhr957998 - 148 mmol/LCJOINT [facility]OWNSHIP [facility] LABPotassium4.13.5 - 5.0 mmol/LCUC [facility] XIPRhkvxrzt05806 - 110 mmol/LCJOINT [facility]NSH[facility] WWBZK530 24 - 32 mmol/LCJOINT TOWNSHIP DISTRICT [facility] LABAnion Cxl797 - 15 mmol/LCJO[facility] LAB BWB056 - 45 U/LCJOINT [facility] LABSpecimen (Source)Anatomical Location / LateralityCollection Method / VolumeCollection TimeReceived TimeBlood specimen (specimen)BLOOD SPECIMEN / Psjwobq1110/27/2002 4:09 PM EDT Narrative Authorizing ProviderResult TypeResult StatusSethu Angel MDLABORATORYFinal Result Performing OrganizationAddressCity/State/ZIP CodePhone Number [facility] [address] [place] [address] from Last 3 Months or Most Recently Relevant to Health Maintenance Insurance Care Teams Team MemberRelationshipSpecialtyStart DateEnd Date Teo Odom DO [address] [place] [address] [facility]10/23/02
--- OUTSIDE RECORDS SUMMARY | 2025-04-15 08:19 | XMS_ITS | Patient Health Record ---
Author Organization [facility] Address [address] [place] [address] [place] [address] Care Team Providers Care Material Reprocessing Associate Name Role Phone Marc Odom DOrin Primary Care Provider Unavail able IlirrosibelCasa Unavailable [phone] Allergies Allergen (clinical drug ingredient) Drug/Non Drug Allergy documented on EMR Reaction Allergy Type Onset Date Status AdhesiveUnknownAllergyActive Reason For Referral No Information Medications Medication SIG (Take, Route, Frequency, Duration) Notes Start Date End Date Status Vitamin D3 75 MCG (3000 UT) Tablet as directed O rally ActiveEstradiol 0.1 MG/GM Creamas directed VaginalweeklyActiveVitamin C 1000 MG Tablet1 tablet Orally Once a day; Duration: 30 day(s)Activetumeric1 tab qdActive Curcumin 95 500 MG Capsuleas directed Orally2 tabsActiveMagnesium 400 MG Capsule as directed OrallyActiveCalcium Citrate 1040 MG Tabletas directed Zefmvo3748 mg ActiveGabapentin 100 MG Capsule1 capsule Orally Once a day; Duration: 30 day(s) ActiveSynthroid 125 MCG Tablet1 tablet Orally Once a dayNot-Taking/PRNMeloxicam 7.5 MG Tablet1 tablet Orally Once a day; Duration: 30 day(s)ActiveVitamin C 100 MG Tablet Chewable1 tablet Orally Once a day; Duration: 30 day(s)Not-Taking/PRN Power Step Orthoticsas eihtxzho61/10/2014ctiveSynthroid 137 MCG Tablet1 tablet Orally Once a dayActive Social History Tobacco Use: Social History Observation Description Date Details (start date - stop date) Never Smoker NA - NA Social History Social HistorySocial InfoQuestionAnswerNotestobacco usePatient is a:non smoker Problems Problem Type SNOMED Code ICD Code Onset Dates Problem Status W/U Status Risk Notes Problem Pain in right foot (750294634793815) Pain in right foot (M79.671) ActiveconfirmedProblemCallosity (684779789)Corns and callosities (L84)Active confirmedProblemSwelling of first metatarsophalangeal joint of hallux (254511738)Hallux valgus right foot (M21.611)Activeconfirmed Plan Of Treatment Pending Test Test Name Order Date X ray: Foot, left 04/12/2014 X ray: Foot, right 04/12/2014 Next Appt Details Provider Name:Casa gleason, 04/19/2025 01:00:00 PM, [address] [place], [facility], [place], [address], Insurance Providers Payer Name Payer Address Payer Phone Subscriber Number Group Number Insured Name Patient Relationship to Insured Coverage Start Date Coverage End Date Medicare Part B J-15 Part [facility] Claims [address] [place] [address] [id number], AliceSelf - patient is the insuredZia Health Clinicual [place], [place] [phone], AliceSelf - patient is the insured Medical (General) History Medical History History ICD Code depression hearing problemshypothyroidismskin conditionseye problemsosteoarthritisSurgical History Surgery Date(Month/Year)
--- OUTSIDE RECORDS SUMMARY | 2025-04-15 08:19 | XMS_ITS | Encounter Summary ---
Author Organization [facility] Address [address] [place] [address] Care Team Providers Care Lens Finisher Name Role Phone Teo Odom DO Primary Care Provider +1- [phone] Source Comments In the event this information is protected by the Federal Confidentiality of Alcohol and Drug AbusePatient Records regulations: The Federal rules restrict any use of the information to criminally investigate or prosecute any alcohol or drug abuse patient.[facility] Reason for Visit * ReasonCommentsRadiology XR Encounter Details DateTypeDepartmentCare Team (Latest Contact Info)Fkgajbxskvc41/11/2025Radiology Radiology [address] [place] [address] Danuta Mo, RT(R) Radiology XR Social History Tobacco UseTypesPacks/DayYears UsedDateSmoking Tobacco: Never AssessedAlcohol UseStandard Drinks/WeekCommentsNot Asked0 (1 standard drink = 0.6 oz pure alcohol)PHQ-2AnswerDate RecordedPHQ-2 sabrx962rea Deprivation Index AnswerDate RecordedNational Score (1-100), lower number is lower risk65 07/05/2023State Score (1-10), lower number is lower hsde996/02/2024Data from: https://www.neighborhoodatlas.medicine.[facility]/. Last address used for [address]4CommentsNoSex and Gender InformationValueDate RecordedSex Assigned at BirthNot on fileLegal SexFemale 05/04/2012 9:16 AM ESTGender IdentityNot on fileSexual OrientationNot on file documented as of this encounter Progress Notes * Danuta Mo RT(R) - 04/13/2025 9:49 AM EST Radiology Service Progress Note PATIENT NAME: Jolynn Hoffmann DATE OF SERVICE: April 13, 2025 TIME: 9:49 AM PATIENT IDENTITY VERIFICATION COMPLETED USING TWO (2) IDENTIFIERS: Name and Date of confirmedby patient verbally. FALL SCREENING: Has the patient had 2 falls in the last year or 1 fall with injury or currently using an Ambulatory Assistive Device (Walker, Cane, Wheelchair, Crutches, etc.)? No PATIENT GENDER DATA: Assigned female at . status: : No status:N/A PATIENT RELEVANT IMPLANT DATA REVIEWED: Not Applicable PATIENT PRESENTS WITH AN IMPLANTABLE OR ATTACHED CNC TECHNICIAN: No RADIOLOGY DEPARTMENT: General X-ray: Exam(s) Completed: Lower Extremity X- Ray(s): Knee, AP / Lat / Tunne / Merchant Bilateral and Wt. Bearing PERIPHERAL IV DATA: Not applicable SIGNED BY: RT Svitlana(R) April 13, 2025 9:49 AM documented in this encounter Plan of Treatment DateTypeDepartmentCare Team (Latest Contact Info)Dfmanahupjb61/26/2025 10:30 AM ESTOffice Visit Orthopaedics [address] [place] [address] Roland Parosns DPM [address] [place] [address] right ankle pain05/18/2025 8:40 AM ESTAppointment Radiology [address] [place] [address] right knee pain05/20/2025 10:15 AM ESTOffice Visit Orthopaedics [address] [place] [address] Casper Martinez MD [address] [place] [address] RIGHT knee pain/ patient would also like left knee looked atdocumented as of this encounter Visit Diagnoses Not on filedocumented in this encounter Care Teams Team MemberRelationshipSpecialtyStart DateEnd Date Teo Odom DO [address] [place] [address] PCP - General10/23/02documented as of this encounter
--- OUTSIDE RECORDS SUMMARY | 2025-04-15 08:19 | XMS_ITS | Encounter Summary ---
Author Organization [facility] Address [address] [place] [address] Care Team Providers Care Leather Sprayer Name Role Phone Teo Odom DO Primary Care Provider +1- [phone] Source Comments In the event this information is protected by the Federal Confidentiality of Alcohol and Drug AbusePatient Records regulations: The Federal rules restrict any use of the information to criminally investigate or prosecute any alcohol or drug abuse patient.[facility] Encounter Details DateTypeDepartmentCare Team (Latest Contact Info)Ovdzkslgvne04/11/2025Travel Social History Tobacco UseTypesPacks/DayYears UsedDateSmoking Tobacco: Never AssessedAlcohol UseStandard Drinks/WeekCommentsNot Asked0 (1 standard drink = 0.6 oz pure alcohol)PHQ-2AnswerDate RecordedPHQ-2 aawet2884Area Deprivation Index AnswerDate RecordedNational Score (1-100), lower number is lower risk65 07/05/2023State Score (1-10), lower number is lower zbua2944Data from: https://www.neighborhoodatlas.medicine.[facility].edu/. Last address used for [address] [facility]02/02/2024CommentsNoSex and Gender InformationValueDate RecordedSex Assigned at BirthNot on fileLegal SexFemale 05/04/2012 9:16 AM ESTGender IdentityNot on fileSexual OrientationNot on file documented as of this encounter Plan of Treatment DateTypeDepartmentCare Team (Latest Contact Info)Cwdrakgdaxh97/26/2025 10:30 AM ESTOffice Visit Orthopaedics [address] [place] [address] Roland Parsons, DPBryon [address] [facility] [place] [address] right ankle pain05/18/2025 8:40 AM ESTAppointment Radiology [address] [place] [address] right knee pain05/20/2025 10:15 AM ESTOffice Visit Orthopaedics [address] [place] [address] Casper Martinez MD [address] [place] [address] RIGHT knee pain/ patient would also like left knee looked atdocumented as of this encounter Visit Diagnoses Not on filedocumented in this encounter Care Teams Team MemberRelationshipSpecialtyStart DateEnd Date Teo Odom DO [address] [place] [address] PCP - General10/23/02documented as of this encounter
--- OUTSIDE RECORDS SUMMARY | 2025-04-15 08:19 | XMS_ITS | Clinical Summary ---
Author Organization [facility] Address [address] [place] [address] Care Team Providers Care Presidential Support Specialist Name Role Phone No, Pcp Primary Care Provider Unavailabl e Encounters DateTypeDepartmentCare IdtiQbzibqfpbcb86/11/2025 11:30 AM ESTProcedure visit [facility] Audiology [address] [place] [address] Erika Braswell AuD Sensorineural hearing loss, bilateral (Primary Dx)03/09/2025 1:30 PM EDT Procedure visit [facility] Audiology [address] [place] [address] Erika Braswell AuD Sensorineural hearing loss, bilateral (Primary Dx)03/02/2025 10:00 AM EDT Procedure visit [facility] Audiology [address] [place] [address] Erika Braswell AuD Sensorineural hearing loss, bilateral (Primary Dx)from Last 3 Months Social History Tobacco UseTypesPacks/DayYears UsedDateSmoking Tobacco: Never Assessed CommentsUnknownSex and Gender InformationValueDate RecordedSex Assigned at Amxfda3003/09/2025 8:44 AM EDTLegal HujSdekoc72/10/2013 6:56 PM ESTGender Identity Epcjpj9803/09/2025 8:44 AM EDTSexual OrientationNot on file Plan of Treatment Health MaintenanceDue DateLast DoneCommentsDepression Kvreeq4706/20/1966Hepatitis C haifin1806/20/1972Breast cancer tixydf0606/20/19949333Zpkoqk36/18/1995Colonoscopy 1999Colorectal Cancer Gvmikl3806/20/1999FIT/FOBT: Average risk1999 Fecal-DNA (Cologuard): Average risk1999Sigmoidoscopy/CT colonography 1999DEXA (modify frequency per FRAX score)2009Pneumococcal 50+ years Vaccine (2 of 2 - PCV), 04/06/2020Flu vaccine (#1)01/01/2025 COVID-19 Vaccine ( - 2024- season), 09/03/2020, 08/07/2020nnual Wellness Visit (Medicare)03/09/2025Respiratory Syncytial Virus (RSV) or age 60 yrs+ (1 - 1-dose 75+ series)2029DTaP/Tdap/Td vaccine (2 - Td or Tdap)hingles nlowepbXuwgteorx37/21/2021, 04/06/2020Hepatitis A vaccineAged OutNo longer eligible based on patient's age to complete this topicHepatitis B vaccineAged OutNo longer eligible based on patient's age to complete this topicHib vaccineAged OutNo longer eligible based on patient's age to complete this topicMeningococcal (ACWY) vaccineAged OutNo longer eligible based on patient's age to complete this topicMeningococcal B vaccineAged OutNo longer eligible based on patient's age to complete this topic Polio vaccineAged OutNo longer eligible based on patient's age to complete this topic Insurance Care Teams Team MemberRelationshipSpecialtyStart DateEnd Date No, Pcp PCP - General03/02/25
--- OUTSIDE RECORDS SUMMARY | 2025-04-15 08:20 | XMS_ITS | Clinical Summary ---
Author Organization [facility] Address [address] [place] [address] Care Team Providers Care Header Machine Operator Name Role Phone Teo Odom Primary Care Provider [phone] Allergies No known active allergies Medications MedicationSigDispense QuantityRefillsLast FilledStart DateEnd DateStatus levothyroxine (Synthroid, Levoxyl) 112 MCG tablet Take 112 mcg by mouth in the morning.3Active estradiol (Estrace) 0.1 MG/GM vaginal cream INSERT 1 GRAM VAGINALLY ONCE WEEKLYActive rOPINIRole (Requip) 0.25 MG tablet 5Active Active Problems No known active problems Encounters DateTypeDepartmentCare QekvIjyuyrygxtw10/09/2025 10:15 AM EDTOffice Visit NICHOLE NOONANGYShelley [address] [phone] Carmen Tna, Cystocele, midline (Primary Dx); Vaginal dryness, menopausal; Post-menopause; Hx of hysterectomy for benign disease; Hx of BSO (bilateral salpingo-oophorectomy); Screening breast cpyxemynjmd58/09/2025Travelfrom Last 3 Months Family History Medical HistoryRelationNameCommentsDiabetesFatherNo Known ProblemsMaternal GrandfatherNo Known ProblemsMaternal GrandmotherHeart diseaseMotherNo Known ProblemsPaternal GrandfatherDiabetesPaternal GrandmotherHypertensionSibling Breast cancerNeg HxColon cancerNeg HxMelanomaNeg HxOvarian cancerNeg HxRelation CevrPuibtcAhdnqfmuOabrlxg7HgofjoSgzntkjiGrixmgwa GrandfatherDeceasedMaternal GrandmotherDeceasedMotherDeceasedPaternal GrandfatherDeceasedPaternal GrandmotherDeceasedSiblingAliveSister1 Social History Tobacco UseTypesPacks/DayYears UsedDateSmoking Tobacco: FormerCigarettes Smokeless Tobacco: Never Tobacco Cessation:Counseling Given: Not Answered Alcohol UseStandard Drinks/WeekCommentsNever0 (1 standard drink = 0.6 oz pure alcohol)Caffeine intake: 2-3 cups per day pop, coffeeCommentsNoSex and Gender InformationValueDate RecordedSex Assigned at BirthNot on fileLegal Sex Vijghj3108/15/2022 6:50 PM EDTGender IdentityNot on fileSexual OrientationNot on file Last Filed Vital Signs Vital SignReadingTime TakenCommentsBlood Dwxdxqjy714/8010 10:18 AM EDT Pulse--Temperature--Respiratory Rate--Oxygen Saturation--Inhaled Oxygen Concentration--Zbqkdm57.4 kg (186 lb)03/11/2025 10:18 AM KRXXbyuqv321.6 cm (5' 6 )01/23/2023 10:48 AM EDTBody Mass Index30.0208 10:48 AM EDT Plan of Treatment DateTypeDepartmentCare Team (Latest Contact Info)Gfwzwgxreki03/13/2026 9:15 AM EDTOffice Visit [facility] PETERSON [address] GILBERTO D [address] [phone] Carmen Tan DO [address] [phone] [place] [id number] Care Teams Team MemberRelationshipSpecialtyStart DateEnd Date Teo Odom [address] [place] [address] PCP - GeneralFamily Medicine03/02/24
[2025-04-15] MEDS: CEFAZOLIN SODIUM 2 GM/50 ML D5W PREMIX IV (10:11)
[2025-04-15] MEDS: IOHEXOL 240 MG/ML - 50 ML VIAL 24000 MG INJ (11:08)
--- NOTE | 2025-04-15 11:15 | PM.URSON ---
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 Cystoscopy. 2. Urethral dilation with Haskins sounds to 30 [place]. 3. Right retrograde pyelogram. 4. Right ureteroscopy. 5. Placement of 7 [place] variable length right ureteral stent Anesthesia: General-LMA Primary Surgeon: Lucien Dewey Complications: None Estimated blood loss (mL): 0 Findings: 1. Rather tight urethral stenosis. 2. 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 3. Very tight UPJ. 4. Capacious right renal pelvis Specimens: None Drains: 7 [place] variable length right ureteral stent Indications for Procedures: This lady has had recurrent urinary tract infections and right flank pain. CT scan suggested possibility of right UPJ obstruction. Nuclear renal scan revealed delayed uptake and excretion of the right kidney and high-grade right stenosis of the UPJ along with atrophic changes in the kidney. Compromised right renal function at 27% compared to 73% on the left. She now presents for cystoscopy right retrograde right ureteroscopy and right stent placement. Detailed description of Procedure: The patient was brought to the operating room and placed on the operating room table in the supine position. SCDs were placed on the lower extremities and turned on and functioning during the entire case. Timeout was done by all parties in the room. We all agreed upon the patient's identification and the planned procedures for this patient. Genn. anesthesia was then administered. The patient was then repositioned into the modified dorsal lithotomy position. All pressure points were satisfactorily padded. Genitalia were sterilely prepped and draped in usual fashion. I started by attempting to pass a 22 [place] Olympus cystoscope per urethra. I was unable due to her severe urethral stenosis. I then used Adenike sounds and dilated her up to 30 [place]. I then passed the scope in the bladder. Panendoscopy in the bladder revealed a striking finding of diffuse cystitis cystica lesions. No tumors were noted. No stones were seen. I then passed 8 [place] cone-tip catheter through the scope and cannulated the right UO. Contrast was injected in a retrograde manner and this showed a fairly normal ureter with an abrupt tapering at the L2 level which was the UPJ. Contrast was able to get through this tightly stenotic UPJ and into the kidney. There was a capacious renal pelvis noted. I then passed a Glidewire through the scope and was able to get it up the ureter and through the narrowing into the renal pelvis. The scope was removed. I then passed a flexible ureteroscope over the wire and was able to ascend up the ureter. As I arrived at the UPJ obstruction I was only able to get the scope through this tight narrowing with quite a bit of manipulation. No stones were seen within the right renal pelvis. The ureteroscope was removed. Cystoscope was backloaded over the wire and passed into the bladder. I then slid a 7 [place] variable length ureteral stent over the wire up into the kidney. The wire was removed and there were good curls in the renal pelvis and in the bladder. The bladder was drained of its contents and the scope was then removed. [facility] and [facility] to PACU in stable condition.
[2025-04-15] MEDS: SOLIFENACIN SUCCINATE 10 MG TABLET PO (11:41)
== END 2025-04-15 13:40 | disposition home or self-care (01) ==
LOC: SURGOUT 08:16
PROVIDERS: PCP Family Medicine; Visit Provider Urology
PROC: (CPT 52332; principal; 2025-04-15 09:40)
DX: N13.5 Crossing vessel and stricture of ureter without hydronephrosis (principal); N35.92 Unspecified urethral stricture, female; N30.80 Other cystitis without hematuria; R10.9 Unspecified abdominal pain; Z87.440 Personal history of urinary (tract) infections; Z90.710 Acquired absence of both cervix and uterus; E03.9 Hypothyroidism, unspecified; M19.90 Unspecified osteoarthritis, unspecified site; G25.81 Restless legs syndrome
CPT/HCPCS: 52332; 52351; 36415; 74420; J0690; J1100; J1885; J2003; J2250; J2405; J2704; J3010; Q9966